=== PATIENT | male | born 1960 | race American Indian/Alaskan Native ===

== ENCOUNTER 2016-07-09 09:16 | Outpatient (CLI) | payer MEDICARE ==
--- NOTE | 2016-07-09 10:25 | Ultrasound Report ---
BILATERAL DIGITAL DIAGNOSTIC MAMMOGRAM with CAD and BILATERAL BREAST ULTRASOUND: 07/09/16 CLINICAL: 56-year-old male with left breast lump and mastodynia. COMPARISON:None. FINDINGS: The examination was performed in a wheelchair.Left retroareolar masslike asymmetry measures approximately 6.0 x 4.6 x 5.7 cm.The margins are relatively smooth. Mild right retroareolar fibroglandular densities. Ultrasound of the left breast (including all four quadrants and the retroareolar area) was performed and demonstrated a large area of retroareolar fibroglandular structures but no mass, cyst or shadowing. Ultrasound of the right breast (including all four quadrants and the retroareolar area) was performed and demonstrated minimal retroareolar fibroglandular densities. No mass, cyst or shadowing. IMPRESSION: Bilateral benign gynecomastia, left worse than right. BI-RADS CATEGORY: 2 -- Benign RECOMMENDATION: Clinical follow-up. COMMENT: Patient follow-up letters are generated by our [employer] application.
== END 2016-07-09 09:17 | disposition home or self-care (01) ==
LOC: SPVWC 09:16
PROVIDERS: ATTEND Internal Medicine
DX: N63 Unspecified lump in breast (principal); N62 Hypertrophy of breast; R92.8 Other abnormal and inconclusive findings on diagnostic imaging of breast
CPT/HCPCS: 76641; G0204; 77066